=== PATIENT | female | born 1980 | race Caucasian/White ===

== ENCOUNTER 2018-08-15 13:03 | Emergency (ER) | payer OTHER ==
[~2018-08-15] VITALS: Ht 165.1 cm; Wt 80.0 kg
[~2018-08-15 13:03] MED LIST: CHOL2000 PO; FLUO20CA8 PO; MULT-208 PO
[2018-08-15 13:22] VITALS: BP 113/68
[2018-08-15] MEDS ORDERED: HYDROcodone/APAP 5/325 TABLET ONE (13:50)
[2018-08-15] MEDS ORDERED: HYDROcodone/APAP 5/325 TABLET PO ONE (14:00)
[2018-08-15] MEDS ORDERED: KETOROLAC 30 MG/1 ML ONE (14:46)
[2018-08-15] MEDS ORDERED: KETOROLAC 30 MG/1 ML IM ONE (15:00)
== END 2018-08-15 14:56 | disposition home or self-care (01) ==
LOC: ED 14:50
DX: S93.492A Sprain of other ligament of left ankle, initial encounter (principal); W19.XXXA Unspecified fall, initial encounter; Y93.89 Activity, other specified; Y99.0 Civilian activity done for income or pay; Y92.69 Other specified industrial and construction area as the place of occurrence of the external cause
CPT/HCPCS: 73610; 73630; 96372; 99284; J1885